=== PATIENT | female | born 1990 | race Caucasian/White ===

== ENCOUNTER 2020-08-25 09:04 | Day surgery (SDC) | payer BC ==
[2020-08-20 15:11] VITALS: BMI 32.8
[2020-08-25 09:29] VITALS: TEMP 98.3
[2020-08-25] MEDS ORDERED: SODIUM CHLORIDE 0.9% 500 ML 500 ML IV ONE (09:29)
[2020-08-25] MEDS ORDERED: fentaNYL (PF) 50 MCG/ML 2 ML AMP ONE (09:44)
[2020-08-25] MEDS ORDERED: BENZOCAINE SPRAY 1 CAN TOPICAL ONE (10:17)
[2020-08-25] MEDS ORDERED: fentaNYL (PF) 50 MCG/ML 2 ML AMP IV ONE (10:25)
[2020-08-25] MEDS ORDERED: MIDAZOLAM 2 MG/2 ML VIAL IV ONE (10:25)
[2020-08-25 10:36] VITALS: RESP 14
--- NOTE | 2020-08-25 11:13 | ECHOT ---
TRANSESOPHAGEAL ECHOCARDIOGRAM DATE OF SERVICE: August 25, 2020. INDICATION: Rule out atrial septal defect. COMPLICATION: None. LEVEL OF SEDATION: Moderate with sedation length of 15 minutes. PROCEDURE DESCRIPTION: After obtaining an informed consent, the patient was brought to the transesophageal echocardiogram lab. A pulse oximetry and heart rate monitors were attached to the patient. Subsequently, the patient was turned into left lateral position. After that I did advance the transesophageal echocardiogram to the mid esophageal where 2D echocardiogram images as well as color Doppler images of various cardiac structures were obtained. Particular attention was made to the atrial septal. Please note that the procedure was performed using 2D echo, color Doppler, pulse and continuous-wave Doppler. FINDINGS: The left ventricular dimension and systolic function appeared to be within normal limits. The right ventricle appeared to be dilated. The left atrium appeared to be dilated as well. The right atrium appeared to be severely dilated. The interatrial septum appeared to be intact. The aortic valve is trileaflet valve without stenosis or regurgitation. The mitral valve seems to be normal with mild MR. There is mild tricuspid regurgitation and mild pulmonic insufficiency seen. Unusual structure was identified in the right atrium. The cardiac MRI is advised for better clarification. CONCLUSION: 1. Normal left ventricular dimension and systolic function. 2. Dilated right ventricle with normal function. 3. Dilated right atrium as well. 4. Overall normal intracardiac valves. 5. No evidence of pericardial effusion. 6. An echo structure was identified in the right atrium could be part of the aortic root which is dilated. Cardiac MRI is advised. MMODL / IJN: [id number] /
[2020-08-25 12:15] VITALS: BP 118/73; PULSE 62
== END 2020-08-25 12:10 | disposition home or self-care (01) ==
LOC: CATHCVL 09:04
PROVIDERS: ATTEND Internal Medicine Interventional Cardiology
DX: I07.1 Rheumatic tricuspid insufficiency (principal); R93.1 Abnormal findings on diagnostic imaging of heart and coronary circulation; Z72.0 Tobacco use; Z82.49 Family history of ischemic heart disease and other diseases of the circulatory system
CPT/HCPCS: 93312; 93320; 93325; 81025; J2250; J3010